=== PATIENT | male | born 1945 | race Hispanic/Latino ===

== ENCOUNTER 2018-05-13 23:02 | Observation (INO) | payer OTHER ==
[~2018-05-13] VITALS: Ht 172.7 cm; Wt 119.8 kg
[~2018-05-13 23:02] MED LIST: ASPI-555 PO; BIOT10006 PO; BUSP15TA3 PO; CITA-106 PO; DORZ10DR14 OD; FINA5TAB41 PO; FLUT16H NASAL; FLUT1BLS IH; HYDR25TA PO; IBUP200C5 PO; LEG CRAMPS PO; LEVO500T2 PO; LOVA20TA3 PO; METF500T6 PO; PANT40TA25 PO; SERT25TA5 PO
[2018-05-13 23:30] LABS: BASOPHILS % (AUTO) 0.6 % (0.0-5.0); EOSINOPHILS % (AUTO) 9.6 % (0.0-8.0); HEMATOCRIT 36.3 % (42-54); LYMPHOCYTES % (AUTO) 17.4 % (21.0-51.0); MEAN CORPUSCULAR HGB CONC 33.5 g/dL (32.0-36.0); MEAN CORPUSCULAR VOLUME 83.6 fL (79-99); NEUTROPHILS % (AUTO) 61.4 % (40.0-77.0); PLATELET COUNT (AUTO) 356 K/uL (130-400); RED BLOOD CELL COUNT(AUTO) 4.35 MIL/uL (4.50-6.20); RED CELL DISTRIBUTION WIDTH 16.9 % (11.0-15.5); WHITE BLOOD COUNT (AUTO) 10.6 K/uL (4.8-10.8)
[2018-05-13] MEDS ORDERED: METHYLPREDNISOLONE SOD SUCC 125MG/2ML VIAL ONE (23:34)
[2018-05-13] MEDS ORDERED: NITROGLYCERIN 1GM/1 INCH PACKET TD ONE (23:34)
[2018-05-13 23:47] LABS: INR 0.99 (0.85-1.15); PARTIAL THROMBOPLASTIN TIME 27.7 SEC (26.3-35.5); PROTHROMBIN TIME 10.4 SEC (9.6-11.6)
[2018-05-13] MEDS ORDERED: IPRATROPIUM/ALBUTEROL SULFATE 3 ML SOLUTION IH ONE (23:54)
[2018-05-14] VITALS (7 sets, daily range): BP systolic 88–157; BP diastolic 51–79
[2018-05-14 00:06] LABS: ALBUMIN 3.4 g/dL (3.5-5.0); BILIRUBIN,TOTAL 0.4 mg/dL (0.2-1.0); CREATINE KINASE MB 3.6 ng/mL (0.5-3.6); CREATININE 1.3 mg/dL (0.5-1.5); TOTAL PROTEIN, SERUM 7.4 g/dL (6.0-8.3)
[2018-05-14 00:09] LABS: POTASSIUM 2.7 mmol/L (3.5-5.1)
[2018-05-14] MEDS ORDERED: LEVOFLOXACIN 500 MG TABLET ONE (00:12)
[2018-05-14] MEDS ORDERED: SODIUM CHLORIDE 0.9% 500ML 500 ML IV ONE (02:00)
[2018-05-14] MEDS ORDERED: POTASSIUM BICARB/CIT AC 25 MEQ TABLET.EFF ONE (02:01)
[2018-05-14] MEDS ORDERED: POTASSIUM CHLORIDE 10% ELIXIR 20 MEQ/15 ML UDCUP PO PRN (03:15)
[2018-05-14] MEDS ORDERED: SODIUM CHLORIDE 0.9% 500ML 500 ML IV SCH ×2 (03:15→06:45)
[2018-05-14] MEDS ORDERED: DEXTROSE 50%-WATER 50 ML DISP.SYRIN IV PRN (03:15)
[2018-05-14] MEDS ORDERED: LIDOCAINE HCL-MPF 1% 2ML VIAL IJ PRN (03:15)
[2018-05-14] MEDS ORDERED: POTASSIUM CHLORIDE 20 MEQ ERTAB PO PRN (03:15)
[2018-05-14] MEDS ORDERED: HYDRALAZINE HCL 20 MG/ML VIAL IV PRN (03:15)
[2018-05-14] MEDS ORDERED: POTASSIUM CHLORIDE 20MEQ/100ML 100 ML IV PRN (03:15)
[2018-05-14] MEDS ORDERED: GLUCAGON 1MG KIT 1 MG ML IM PRN (03:15)
[2018-05-14] MEDS ORDERED: ONDANSETRON HCL MDV 20ML 2 MG/ML VIAL IVP PRN (03:15)
[2018-05-14] MEDS ORDERED: POTA10TA14 PO (03:20)
[2018-05-14] MEDS ORDERED: VARE0.5T PO (03:20)
[2018-05-14] MEDS ORDERED: TAMS-1 PO (03:20)
[2018-05-14] MEDS ORDERED: LOSA50TA37 PO (03:20)
[2018-05-14] MEDS: SODIUM CHLORIDE 0.9% 1000ML 1,000 ML IV SCH (04:00)
[2018-05-14] MEDS: ACETAMINOPHEN 325 MG TAB PO PRN (04:00)
[2018-05-14 06:19] LABS: CREATINE KINASE MB 3.3 ng/mL (0.5-3.6); MYOGLOBIN 363 ng/mL (10-92); TROPONIN I < 0.04 ng/mL (0.00-0.06)
[2018-05-14 06:27] LABS: CREATINE KINASE, TOTAL 444 U/L (21-232)
[2018-05-14] MEDS: INSULIN R PO SS1 SQ SCH ×4 (06:48→20:57)
[2018-05-14] MEDS: IPRATROPIUM/ALBUTEROL SULFATE 3 ML SOLUTION IH SCH ×5 (07:07→21:55)
[2018-05-14] MEDS ORDERED: ZOSYN 3.375GM+NS 50ML 50 ML IV ONE (07:30)
[2018-05-14] MEDS: PANTOPRAZOLE SODIUM 40 MG TABLET.DR PO SCH (09:18)
[2018-05-14] MEDS: ENOXAPARIN SODIUM 40 MG/0.4 ML SYRINGE SQ SCH (09:19)
[2018-05-14] MEDS ORDERED: PHARMACY COMMUNICATION MISC SCH (11:00)
[2018-05-14] MEDS: METHYLPREDNISOLONE SOD SUCC 125MG/2ML VIAL IVP SCH (12:14)
[2018-05-14] MEDS ORDERED: SODIUM CHLORIDE 0.9% 1000ML 1,500 ML IV SCH (12:15)
[2018-05-14] MEDS: ZOSYN 3.375GM+NS 50ML 50 ML IV SCH ×2 (12:41→20:57)
[2018-05-14 12:56] LABS: CREATINE KINASE MB 3.9 ng/mL (0.5-3.6); MYOGLOBIN 285 ng/mL (10-92); TROPONIN I < 0.04 ng/mL (0.00-0.06)
[2018-05-14 12:58] LABS: CREATINE KINASE, TOTAL 465 U/L (21-232)
[2018-05-14] MEDS ORDERED: LORAZEPAM 0.5 MG TABLET ONE (14:38)
[2018-05-14] MEDS ORDERED: LORAZEPAM 0.5 MG TABLET PO ONE (16:30)
[2018-05-15] VITALS (7 sets, daily range): BP systolic 125–169; BP diastolic 62–97
[2018-05-15] MEDS: METHYLPREDNISOLONE SOD SUCC 125MG/2ML VIAL IVP SCH ×2 (00:26→11:58)
[2018-05-15] MEDS: IPRATROPIUM/ALBUTEROL SULFATE 3 ML SOLUTION IH SCH ×7 (01:50→20:00)
[2018-05-15] MEDS: SODIUM CHLORIDE 0.9% 1000ML 1,000 ML IV SCH (05:43)
[2018-05-15] MEDS: ZOSYN 3.375GM+NS 50ML 50 ML IV SCH ×3 (05:44→20:32)
[2018-05-15 05:55] LABS: BASOPHILS % (AUTO) 0.1 % (0.0-5.0); HEMATOCRIT 33.3 % (42-54); LYMPHOCYTES % (AUTO) 4.1 % (21.0-51.0); MEAN CORPUSCULAR HEMOGLOBIN 28.1 pg (27.0-33.0); MEAN CORPUSCULAR HGB CONC 33.5 g/dL (32.0-36.0); MONOCYTES % (AUTO) 4.8 % (3.0-13.0); PLATELET COUNT (AUTO) 323 K/uL (130-400); RED BLOOD CELL COUNT(AUTO) 3.96 MIL/uL (4.50-6.20); RED CELL DISTRIBUTION WIDTH 17.4 % (11.0-15.5); WHITE BLOOD COUNT (AUTO) 14.8 K/uL (4.8-10.8)
[2018-05-15 06:20] LABS: ALBUMIN 3.1 g/dL (3.5-5.0); BILIRUBIN,TOTAL 0.1 mg/dL (0.2-1.0); CREATININE 1.2 mg/dL (0.5-1.5); PHOSPHORUS 2.3 mg/dL (2.5-4.9); POTASSIUM 3.7 mmol/L (3.5-5.1); TOTAL PROTEIN, SERUM 6.8 g/dL (6.0-8.3)
[2018-05-15 06:21] LABS: HEMOGLOBIN A1C 6.7 % (4.0-6.0)
[2018-05-15 06:25] LABS: B-TYPE NATRIURETIC PEPTIDE 186 pg/mL (0-100)
[2018-05-15] MEDS: INSULIN R PO SS1 SQ SCH ×4 (06:42→20:29)
[2018-05-15 07:43] LABS: ABG BASE EXCESS -1.6 mmol/L (-2.0-3.0); ABG HCO3 23.2 mmol/L (21.0-28.0); ABG PCO2 40 mmHg (35-48)
[2018-05-15] MEDS: PANTOPRAZOLE SODIUM 40 MG TABLET.DR PO SCH (08:41)
[2018-05-15] MEDS: ENOXAPARIN SODIUM 40 MG/0.4 ML SYRINGE SQ SCH (08:42)
[2018-05-15] MEDS: ACETAMINOPHEN 325 MG TAB PO PRN (16:41)
[2018-05-15 17:17] LABS: BILIRUBIN,TOTAL 0.2 mg/dL (0.2-1.0); CREATININE 1.3 mg/dL (0.5-1.5); POTASSIUM 3.6 mmol/L (3.5-5.1); TOTAL PROTEIN, SERUM 6.6 g/dL (6.0-8.3)
[2018-05-15] MEDS: PREDNISONE 20 MG TABLET PO SCH (18:10)
[2018-05-15] MEDS ORDERED: PREDNISONE 20 MG TABLET ONE (18:15)
[2018-05-15] MEDS: LEVOFLOXACIN 750 MG TABLET PO SCH (18:18)
[2018-05-15] MEDS: METFORMIN HCL 500 MG TABLET PO SCH (18:18)
[2018-05-15] MEDS: BENZONATATE 100 MG CAPSULE PO PRN (18:18)
[2018-05-16] VITALS: BP 134/69
[2018-05-16] MEDS ORDERED: LEVOFLOXACIN 500 MG/D5W 100 ML 100 ML IV SCH
[2018-05-16 03:00] VITALS: BP 143/81
[2018-05-16 05:20] LABS: BASOPHILS % (AUTO) 0.1 % (0.0-5.0); HEMATOCRIT 34.5 % (42-54); LYMPHOCYTES % (AUTO) 4.4 % (21.0-51.0); MEAN CORPUSCULAR HEMOGLOBIN 27.1 pg (27.0-33.0); MEAN CORPUSCULAR HGB CONC 32.3 g/dL (32.0-36.0); MEAN CORPUSCULAR VOLUME 83.9 fL (79-99); MONOCYTES % (AUTO) 9.1 % (3.0-13.0); NEUTROPHILS % (AUTO) 86.4 % (40.0-77.0); PLATELET COUNT (AUTO) 290 K/uL (130-400); RED BLOOD CELL COUNT(AUTO) 4.11 MIL/uL (4.50-6.20); RED CELL DISTRIBUTION WIDTH 17.2 % (11.0-15.5); WHITE BLOOD COUNT (AUTO) 18.7 K/uL (4.8-10.8)
[2018-05-16 05:34] LABS: CREATININE 1.1 mg/dL (0.5-1.5); POTASSIUM 3.9 mmol/L (3.5-5.1)
[2018-05-16] MEDS: ZOSYN 3.375GM+NS 50ML 50 ML IV SCH ×3 (05:37→21:07)
[2018-05-16] MEDS: INSULIN R PO SS1 SQ SCH ×4 (05:42→21:43)
[2018-05-16] MEDS: IPRATROPIUM/ALBUTEROL SULFATE 3 ML SOLUTION IH SCH ×3 (06:23→18:23)
[2018-05-16 07:30] VITALS: BP 143/68
[2018-05-16] MEDS ORDERED: TAMSULOSIN HCL 0.4 MG CAP.ER.24H PO SCH (09:00)
[2018-05-16] MEDS: PANTOPRAZOLE SODIUM 40 MG TABLET.DR PO SCH (09:48)
[2018-05-16] MEDS: PREDNISONE 20 MG TABLET PO SCH (09:48)
[2018-05-16] MEDS: HYDROCHLOROTHIAZIDE 25 MG TABLET PO SCH (09:49)
[2018-05-16] MEDS: LOSARTAN 50 MG TABLET PO SCH (09:49)
[2018-05-16] MEDS: ASPIRIN 81 MG EC TAB PO SCH (09:49)
[2018-05-16] MEDS: CITALOPRAM 20 MG TABLET PO SCH (09:49)
[2018-05-16] MEDS: METFORMIN HCL 500 MG TABLET PO SCH ×2 (09:49→17:56)
[2018-05-16] MEDS: FINASTERIDE 5 MG TABLET PO SCH ×2 (09:58→21:07)
[2018-05-16] MEDS: DORZOLAMIDE HCL/TIMOLOL MALEAT DROPS 10 ML BOTTLE OD SCH (09:58)
[2018-05-16] MEDS: ENOXAPARIN SODIUM 40 MG/0.4 ML SYRINGE SQ SCH (10:05)
[2018-05-16 11:00] VITALS: BP 138/65
[2018-05-16 16:00] VITALS: BP 133/67
[2018-05-16 19:00] VITALS: BP 140/79
[2018-05-17 04:00] VITALS: BP 138/66
[2018-05-17] MEDS: ZOSYN 3.375GM+NS 50ML 50 ML IV SCH ×2 (04:13→12:35)
[2018-05-17] MEDS: INSULIN R PO SS1 SQ SCH ×3 (06:22→16:58)
[2018-05-17] MEDS: IPRATROPIUM/ALBUTEROL SULFATE 3 ML SOLUTION IH SCH ×2 (06:36→11:23)
[2018-05-17 07:00] VITALS: BP 132/73
[2018-05-17] MEDS: ASPIRIN 81 MG EC TAB PO SCH (07:56)
[2018-05-17] MEDS: PANTOPRAZOLE SODIUM 40 MG TABLET.DR PO SCH (07:56)
[2018-05-17] MEDS: METFORMIN HCL 500 MG TABLET PO SCH ×2 (07:56→17:01)
[2018-05-17] MEDS: LOSARTAN 50 MG TABLET PO SCH (07:56)
[2018-05-17] MEDS: CITALOPRAM 20 MG TABLET PO SCH (07:56)
[2018-05-17] MEDS: HYDROCHLOROTHIAZIDE 25 MG TABLET PO SCH (07:56)
[2018-05-17] MEDS: ENOXAPARIN SODIUM 40 MG/0.4 ML SYRINGE SQ SCH (07:57)
[2018-05-17] MEDS: PREDNISONE 20 MG TABLET PO SCH (08:02)
[2018-05-17] MEDS: BENZONATATE 100 MG CAPSULE PO PRN (08:16)
[2018-05-17] MEDS: LEVOFLOXACIN 750 MG TABLET PO SCH (08:16)
[2018-05-17] MEDS: DORZOLAMIDE HCL/TIMOLOL MALEAT DROPS 10 ML BOTTLE OD SCH (09:00)
[2018-05-17 11:00] VITALS: BP 129/61
[2018-05-17 15:49] VITALS: BP 145/79
== END 2018-05-17 18:35 | disposition home or self-care (01) ==
LOC: EDH 23:02 → EDHIP 05-14 01:56 → 3CH 05-14 02:16
PROVIDERS: ADMIT Internal Medicine Pulmonary Disease; ATTEND Internal Medicine Pulmonary Disease
DX: J44.1 Chronic obstructive pulmonary disease with (acute) exacerbation (principal); R42 Dizziness and giddiness; I10 Essential (primary) hypertension; E78.5 Hyperlipidemia, unspecified; I25.10 Atherosclerotic heart disease of native coronary artery without angina pectoris; E11.9 Type 2 diabetes mellitus without complications; E87.2 Acidosis; N40.0 Benign prostatic hyperplasia without lower urinary tract symptoms; F17.210 Nicotine dependence, cigarettes, uncomplicated; F32.9 Major depressive disorder, single episode, unspecified; F41.9 Anxiety disorder, unspecified; Z82.49 Family history of ischemic heart disease and other diseases of the circulatory system; Z82.5 Family history of asthma and other chronic lower respiratory diseases; Z83.3 Family history of diabetes mellitus; Z79.899 Other long term (current) drug therapy; Z79.01 Long term (current) use of anticoagulants
CPT/HCPCS: 36415 ×4; 36600; 71045 ×2; 71250; 80048; 80053 ×3; 80061; 82550 ×3; 82553 ×3; 82803; 82948 ×15; 83036; 83605 ×5; 83735; 83874 ×3; 83880 ×2; 84100; 84132; 84484 ×3; 85025 ×3; 85610; 85730; 87040 ×2; 87804 ×2; 93005; 93306; 94640 ×14; 94660 ×2; 94664; 94760 ×3; 96361; 96365; 96366 ×4; 96372 ×4; 96375 ×2; 96376; 99285; G0378 ×89; J0360; J1650 ×4; J1815 ×5; J2543 ×11; J2930 ×4; J7030 ×2; J7040 ×2

== ENCOUNTER 2019-02-07 01:24 | Observation (INO) | payer OTHER ==
[~2019-02-07] VITALS: Ht 172.7 cm; Wt 117.4 kg
[~2019-02-07 01:24] MED LIST changes: +ALBU8.5H8 IH; +DORZ10DR10 OS; +FURO20TA4 PO; -LEG CRAMPS PO; -LEVO500T2 PO; +LEVO500T89 PO; +LOSA50TA64 PO; +METF-444 PO; -METF500T6 PO; +POTA10TA14 PO; -SERT25TA5 PO; +TAMS-1 PO; +TAMS0.4C32 PO; +VARE0.5T PO
[2019-02-07] MEDS ORDERED: IPRATROPIUM/ALBUTEROL SULFATE 3 ML SOLUTION IH ONE ×3 (01:36→11:09)
[2019-02-07] MEDS ORDERED: METHYLPREDNISOLONE SOD SUCC 125MG/2ML VIAL ONE (01:43)
[2019-02-07 02:06] LABS: BASOPHILS % (AUTO) 0.7 % (0.0-5.0); EOSINOPHILS % (AUTO) 6.7 % (0.0-8.0); HEMATOCRIT 33.8 % (42-54); LYMPHOCYTES % (AUTO) 9.7 % (21.0-51.0); MEAN CORPUSCULAR HEMOGLOBIN 24.4 pg (27.0-33.0); MEAN CORPUSCULAR VOLUME 76.2 fL (79-99); MONOCYTES % (AUTO) 11.6 % (3.0-13.0); NEUTROPHILS % (AUTO) 71.3 % (40.0-77.0); PLATELET COUNT (AUTO) 337 K/uL (130-400); RED BLOOD CELL COUNT(AUTO) 4.44 MIL/uL (4.50-6.20); RED CELL DISTRIBUTION WIDTH 18.7 % (11.0-15.5)
[2019-02-07 02:08] LABS: ABG BASE EXCESS 0.7 mmol/L (-2.0-3.0); ABG HCO3 26.9 mmol/L (21.0-28.0); ABG OXYGEN SATURATION 97.4 % (95.0-99.0); ABG PCO2 49 mmHg (35-48)
[2019-02-07 02:11] LABS: CREATININE 1.4 mg/dL (0.5-1.5); POTASSIUM 4.1 mmol/L (3.5-5.1)
[2019-02-07 02:14] LABS: PARTIAL THROMBOPLASTIN TIME 33.4 SEC (26.3-35.5); PROTHROMBIN TIME 10.5 SEC (9.6-11.6)
[2019-02-07 02:15] LABS: ALBUMIN 3.2 g/dL (3.5-5.0); BILIRUBIN,TOTAL 0.4 mg/dL (0.2-1.0); MAGNESIUM 1.9 mg/dL (1.80-2.40); TOTAL PROTEIN, SERUM 7.9 g/dL (6.0-8.3)
[2019-02-07] MEDS ORDERED: LEVOFLOXACIN 750 MG/D5W 150 ML 150 ML ONE (02:56)
[2019-02-07 04:16] LABS: APPEARANCE,URINE Clear (CLEAR); BILIRUBIN,URINE Negative (NEGATIVE); COLOR,URINE Dark Yellow (YELLOW); GLUCOSE, URINE (UA) Negative (NEGATIVE); KETONES,URINE Trace mg/dL (NEGATIVE); LEUKOCYTE ESTERASE ,URINE Trace (NEGATIVE); NITRATE,URINE Negative (NEGATIVE); OCCULT BLOOD,URINE Negative (NEGATIVE); PROTEIN,URINE Negative (NEGATIVE)
[2019-02-07 04:23] LABS: BACTERIA,URINE None Seen /HPF (None Seen); RBC,URINE None Seen /HPF (0-1); SQUAMOUS EPITHELIAL CELL,UR Few /HPF (0-2)
[2019-02-07] MEDS ORDERED: BUDESONIDE 0.5 MG/2 ML INH IH ONE (07:04)
[2019-02-07] MEDS: METHYLPREDNISOLONE SOD SUCC 40MG/ML 1ML IVP SCH ×2 (07:30→19:30)
[2019-02-07] MEDS ORDERED: DEXTROSE 50%-WATER 50 ML DISP.SYRIN IV PRN (07:30)
[2019-02-07] MEDS ORDERED: ACETAMINOPHEN 325 MG TAB PO PRN ×3 (07:30→14:45)
[2019-02-07] MEDS ORDERED: ONDANSETRON HCL 4 MG/2 ML VIAL IVP PRN (07:30)
[2019-02-07] MEDS: PANTOPRAZOLE SODIUM 40 MG TABLET.DR PO SCH (07:30)
[2019-02-07] MEDS: INSULIN R PO SS1 SQ SCH ×4 (07:30→21:00)
[2019-02-07] MEDS ORDERED: GLUCAGON 1MG KIT 1 MG ML IM PRN (07:30)
[2019-02-07] MEDS ORDERED: PANTOPRAZOLE SODIUM 40 MG TABLET.DR PO ONE (07:52)
[2019-02-07] MEDS ORDERED: ENOXAPARIN SODIUM 40 MG/0.4 ML SYRINGE SQ ONE (07:52)
[2019-02-07] MEDS: LEVOFLOXACIN 500 MG/D5W 100 ML 100 ML IV SCH (09:00)
[2019-02-07] MEDS: IPRATROPIUM/ALBUTEROL SULFATE 3 ML SOLUTION IH SCH ×3 (11:12→23:56)
[2019-02-07] MEDS ORDERED: ACETAMINOPHEN 325 MG TAB ONE (14:33)
[2019-02-07] MEDS ORDERED: HYDROMORPHONE HCL 2 MG/ML VIAL IVP PRN (14:45)
[2019-02-07] MEDS ORDERED: ONDANSETRON HCL MDV 20ML 2 MG/ML VIAL IVP PRN (14:45)
[2019-02-07] MEDS ORDERED: ALPRAZOLAM 0.25 MG TABLET PO PRN (14:45)
[2019-02-07] MEDS ORDERED: LACTULOSE 20 GM/30 ML UDCUP PO PRN (14:45)
[2019-02-07] MEDS ORDERED: HYDROCODONE/ACETAMINOPHEN 5/325 MG TAB PO PRN (14:45)
[2019-02-07] MEDS ORDERED: GUAIFENESIN-DM 200/20 MG 10 ML PO PRN (14:45)
[2019-02-07] MEDS ORDERED: METHYLPREDNISOLONE SOD SUCC 40MG/ML 1ML ONE (15:35)
[2019-02-07] MEDS ORDERED: BUDESONIDE 0.5 MG/2 ML INH IH SCH (18:00)
[2019-02-07 20:36] VITALS: BP 145/71
[2019-02-07] MEDS: BUSPIRONE HCL 5 MG TABLET PO SCH (22:08)
[2019-02-07] MEDS: ENOXAPARIN SODIUM 40 MG/0.4 ML SYRINGE SQ SCH (22:09)
[2019-02-07 23:45] VITALS: BP 110/42
[2019-02-08 03:40] VITALS: BP 142/56
[2019-02-08 03:58] LABS: BASOPHILS % (AUTO) 0.1 % (0.0-5.0); HEMATOCRIT 31.8 % (42-54); LYMPHOCYTES % (AUTO) 6.4 % (21.0-51.0); MEAN CORPUSCULAR HEMOGLOBIN 24.3 pg (27.0-33.0); MEAN CORPUSCULAR HGB CONC 31.7 g/dL (32.0-36.0); MEAN CORPUSCULAR VOLUME 76.5 fL (79-99); MONOCYTES % (AUTO) 7.7 % (3.0-13.0); NEUTROPHILS % (AUTO) 85.8 % (40.0-77.0); PLATELET COUNT (AUTO) 398 K/uL (130-400); RED BLOOD CELL COUNT(AUTO) 4.16 MIL/uL (4.50-6.20); WHITE BLOOD COUNT (AUTO) 14.1 K/uL (4.8-10.8)
[2019-02-08 04:15] LABS: CREATININE 1.4 mg/dL (0.5-1.5); POTASSIUM 3.5 mmol/L (3.5-5.1)
[2019-02-08] MEDS: INSULIN R PO SS1 SQ SCH (06:00)
[2019-02-08] MEDS: PANTOPRAZOLE SODIUM 40 MG TABLET.DR PO SCH (06:03)
[2019-02-08] MEDS: METHYLPREDNISOLONE SOD SUCC 40MG/ML 1ML IVP SCH (06:04)
[2019-02-08 07:00] VITALS: BP 112/67
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
[2019-02-08] MEDS ORDERED: POTASSIUM CHLORIDE 10 MEQ/TAB.SA PO SCH (09:00)
[2019-02-08] MEDS ORDERED: CITALOPRAM 20 MG TABLET PO SCH (09:00)
[2019-02-08] MEDS ORDERED: DORZOLAMIDE HCL/TIMOLOL MALEAT DROPS 10 ML BOTTLE OD SCH (09:00)
[2019-02-08] MEDS ORDERED: ASPIRIN 81MG TAB.CHEW PO SCH (09:00)
[2019-02-08] MEDS ORDERED: FUROSEMIDE 20 MG TABLET PO SCH (09:00)
[2019-02-08] MEDS ORDERED: TAMSULOSIN HCL 0.4 MG CAP.ER.24H PO SCH (09:00)
[2019-02-08] MEDS ORDERED: HYDROCHLOROTHIAZIDE 25 MG TABLET PO SCH (09:00)
[2019-02-08] MEDS ORDERED: FINASTERIDE 5 MG TABLET PO SCH (09:00)
[2019-02-08] MEDS ORDERED: Lovastatin 20 MG PO SCH (09:00)
[2019-02-08] MEDS ORDERED: LOSARTAN 50 MG TABLET PO SCH (09:00)
[2019-02-08] MEDS: ENOXAPARIN SODIUM 40 MG/0.4 ML SYRINGE SQ SCH (10:05)
[2019-02-08] MEDS: BUSPIRONE HCL 5 MG TABLET PO SCH (10:05)
[2019-02-08] MEDS: LEVOFLOXACIN 500 MG/D5W 100 ML 100 ML IV SCH (10:06)
[2019-02-08 11:00] VITALS: BP 116/67
--- NOTE | 2019-02-08 12:24 | NUR ---
RD Notification Patient with COPD Exacerbation. Patient reports tolerating Heart Healthy diet with no report of GI distress and PO intake at 100%. Rec to add 75gm CC diet modifier secondary to Hx of DM. Patient LBM 02/05/19. Patient monitored labs: Glu 154, BUN 27, Cr 1.4, GFR 53, Alb 3.2, Cl 99. RD to continue to monitor. Please notify RD as nutritional concerns arise. Thank you. Addendum: 02/08/19 at [address] RD Amended: Links added.
--- NOTE | 2019-02-08 18:30 | NUR ---
DISCHARGE INSTRUCTIONS GIVEN, PIV REMOVED AND INTACT, HOME PORTABLE O2 TANK WITH PATIENT, DISCHARGED HOME TO FAMILY VEHICLE VIA WHEELCHAIR.
== END 2019-02-08 20:11 | disposition home or self-care (01) ==
LOC: EDH 01:24 → EDHIP 05:26 → INTOOBSV 05:26 → OBSVTOIN 05:26 → 2AH 20:30
PROVIDERS: ADMIT Internal Medicine Critical Care Medicine; ATTEND Internal Medicine Critical Care Medicine
DX: J44.1 Chronic obstructive pulmonary disease with (acute) exacerbation (principal); E11.22 Type 2 diabetes mellitus with diabetic chronic kidney disease; I12.9 Hypertensive chronic kidney disease with stage 1 through stage 4 chronic kidney disease, or unspecified chronic kidney disease; N18.9 Chronic kidney disease, unspecified; E66.9 Obesity, unspecified; E78.5 Hyperlipidemia, unspecified; N40.0 Benign prostatic hyperplasia without lower urinary tract symptoms; F17.210 Nicotine dependence, cigarettes, uncomplicated; Z99.81 Dependence on supplemental oxygen
CPT/HCPCS: 36415 ×2; 36600; 71045; 80048; 80053; 81001; 82550; 82803; 82948 ×3; 83735; 83880; 84484; 85025 ×2; 85610; 85730; 87040 ×2; 93005; 94640 ×7; 94664; 96365; 96372 ×2; 96375; 99291; G0378 ×39; J1650 ×3; J1956 ×2; J2920 ×2; J2930

== ENCOUNTER → 2020-01-11 | Outpatient (CLI) | payer OTHER ==
[~2020-01-11] MED LIST changes: -DORZ10DR10 OS; -FLUT1BLS IH; -LEVO500T89 PO; -TAMS-1 PO
== END | disposition home or self-care (01) ==
LOC: SHCH 13:25
PROVIDERS: ATTEND Internal Medicine Cardiovascular Disease
DX: I35.8 Other nonrheumatic aortic valve disorders (principal)
CPT/HCPCS: 93306; 93356

== ENCOUNTER → 2020-03-01 | Outpatient (CLI) | payer OTHER ==
--- NOTE | 2020-01-20 11:13 | NUR ---
PT WAS A NO SHOW FOR THIS DOS
--- NOTE | 2020-01-27 12:05 | NUR ---
PT WAS A NO SHOW FOR THIS DOS
[~2020-03-01] VITALS: Ht 172.7 cm; Wt 112.5 kg
[~2020-03-01] MED LIST changes: +REGADENOSON 0.4 MG/5 ML PF SYG IVP SCH
== END | disposition home or self-care (01) ==
LOC: SHCH 10:00
PROVIDERS: ATTEND Internal Medicine Cardiovascular Disease
DX: R07.9 Chest pain, unspecified (principal); R06.09 Other forms of dyspnea
CPT/HCPCS: 78452; 93017; 96374; A9500 ×2; J2785

== ENCOUNTER → 2020-03-06 | Outpatient (CLI) | payer OTHER ==
[~2020-03-06] MED LIST changes: -REGADENOSON 0.4 MG/5 ML PF SYG IVP SCH
== END | disposition home or self-care (01) ==
LOC: SHCH 12:24
PROVIDERS: ATTEND Internal Medicine Cardiovascular Disease
DX: I87.2 Venous insufficiency (chronic) (peripheral) (principal)
CPT/HCPCS: 93970

== ENCOUNTER 2021-12-11 12:20 | Emergency (ER) | payer OTHER ==
[~2021-12-11 12:20] MED LIST changes: -ASPI-555 PO; +ASPI-556 PO; -PANT40TA25 PO; +PANT40TA54 PO
[2021-12-11 12:22] VITALS: BP 140/79
[2021-12-11] MEDS ORDERED: MORPHINE 2 MG SYG IVP ONE (13:30)
[2021-12-11] MEDS ORDERED: ONDANSETRON 4MG INJ IVP ONE (13:30)
[2021-12-11] MEDS ORDERED: ACET1TAB25 PO (15:13)
== END 2021-12-11 17:58 | disposition home or self-care (01) ==
LOC: EDH 12:20
DX: M54.50 Low back pain, unspecified (principal); I10 Essential (primary) hypertension; I25.10 Atherosclerotic heart disease of native coronary artery without angina pectoris; E11.9 Type 2 diabetes mellitus without complications; E78.00 Pure hypercholesterolemia, unspecified; F41.9 Anxiety disorder, unspecified; Z79.82 Long term (current) use of aspirin; Z79.899 Other long term (current) drug therapy
CPT/HCPCS: 74176; 96374; 96375; 99284; J2405

== ENCOUNTER → 2024-03-19 | Outpatient (CLI) | payer OTHER ==
[~2024-03-19] MED LIST changes: -ASPI-556 PO; +ATOR40TA69 PO; -BIOT10006 PO; -CITA-106 PO; -DORZ10DR14 OD; +ERGO400C PO; -FINA5TAB41 PO; -FLUT16H NASAL; -FURO20TA4 PO; +FURO40TA5 PO; +GABA-534 PO; -HYDR25TA PO; -IBUP200C5 PO; +ICOS1CAP PO; -LOVA20TA3 PO; +MELO-106 PO; -METF-444 PO; +METF-446 PO; +OMEP40CA21 PO; -PANT40TA54 PO; -POTA10TA14 PO; +PRED20TA3 PO; +PRED5TAB PO; -TAMS0.4C32 PO; -VARE0.5T PO
== END | disposition home or self-care (01) ==
LOC: SHCH 14:45
PROVIDERS: ATTEND Internal Medicine Cardiovascular Disease
DX: I73.9 Peripheral vascular disease, unspecified (principal); I87.1 Compression of vein; I87.2 Venous insufficiency (chronic) (peripheral)
CPT/HCPCS: 93925; 93970